=== PATIENT | female | born 1960 | race Caucasian/White ===

== ENCOUNTER 2018-11-06 09:50 | Emergency (ER) | payer OTHER ==
[2018-11-06 10:47] VITALS: BP 110/69
--- NOTE | 2018-11-06 11:18 | UC ---
Hand/Wrist HPI - HPI Summary HPI Summary: 58-year-old female comes in with a chief complaint of swollen left ring finger after a bee sting yesterday. Patient has a ring on that finger and she cannot get it off and she feels like it's constricting her finger. She did take Benadryl with out any help. No complaint of any numbness. Does have difficulty moving the PIP of the ring finger due to the swelling. - History Of Current Complaint Chief Complaint: [employer]CSkin Stated Complaint: BEE STING ON RING FINGER,RING NOW STUCK Time Seen by Provider: 11/06/18 11:07 Pain Intensity: 1 - Allergies/Home Medications Allergies/Adverse Reactions: Allergies Allergy/AdvReac Type Severity Reaction Status Date / Time Penicillins Allergy Intermediate Rash Verified 11/06/18 10:43 Home Medications: Home Medications NK [No Home Medications Reported] 11/06/18 [History Confirmed 11/06/18] PMH/Surg Hx/FS Hx/Imm Hx Previously Healthy: Yes - Surgical History Surgical History: None - Family History Known Family History: Positive: Non-Contributory - Social History Alcohol Use: Daily Alcohol Amount: 1 glass wine/day Substance Use Type: None Smoking Status (MU): Never Smoked Tobacco Review of Systems All Other Systems Reviewed And Are Negative: Yes Constitutional: Positive: Negative Skin: Positive: Other - SEE HPI Eyes: Positive: Negative ENT: Positive: Negative Respiratory: Positive: Negative Cardiovascular: Positive: Negative Gastrointestinal: Positive: Negative Motor: Positive: Decreased ROM Neurovascular: Positive: Negative Musculoskeletal: Positive: Other: - SEE HPI Neurological: Positive: Negative Psychological: Positive: Negative Is Patient Immunocompromised?: No Physical Exam Triage Information Reviewed: Yes Appearance: Well-Appearing, No Pain Distress, Well-Nourished Vital Signs: Initial Vital Signs Temp 97.2 F 11/06/18 10:43 Pulse 63 11/06/18 10:43 Resp 16 11/06/18 10:43 BP 110/69 11/06/18 10:43 Pulse Ox 99 11/06/18 10:43 Vital Signs Reviewed: Yes Eye Exam: Normal Eyes: Positive: Conjunctiva Clear Neck: Positive: Supple Respiratory: Positive: No respiratory distress Musculoskeletal: Positive: Other: - Left index finger is swollen and she has a ring on it which constricting at the base. Decreased range of motion in the PIP where the bee sting is. I do not see any foreign body. Neurological: Positive: Alert Psychological: Positive: Age Appropriate Behavior Skin: Positive: Other - On the left index finger capillary refill is normal. Sensation is normal. Hand/Wrist Course/Dx - Course Course Of Treatment: Nursing successfully removed the ring from the left index finger. Patient neurovascularly intact after removal of the ring by nursing. Patient will continue symptomatically treatment for the bee sting. - Differential Dx/Diagnosis Provider Diagnosis: Insect bite Discharge ED - Sign-Out/Discharge Documenting (check all that apply): Patient Departure All imaging exams completed and their final reports reviewed: No Studies - Discharge Plan Condition: Stable Disposition: HOME Patient Education Materials: Insect Bite or Sting (ED) Referrals: [facility] [place] [facility] [Outside] Additional Instructions: FOLLOW UP WITH YOUR DOCTOR IF NOT COMPLETELY IMPROVED. GET RECHECKED SOONER IF WORSE OR ANY QUESTIONS OR CONCERNS. - Billing Disposition and Condition Condition: STABLE Disposition: Home
== END 2018-11-06 11:36 | disposition home or self-care (01) ==
LOC: UCCORT 09:50
DX: T63.441A Toxic effect of venom of bees, accidental (unintentional), initial encounter (principal); M79.89 Other specified soft tissue disorders; Y92.9 Unspecified place or not applicable; Z88.0 Allergy status to penicillin
CPT/HCPCS: 99202; G0463